=== PATIENT | male | born 1990 | race Caucasian/White ===

== ENCOUNTER 2023-12-21 01:25 | Emergency (ER) | payer SELFPAY ==
[~2023-12-21] VITALS: Ht 175.3 cm; Wt 113.4 kg
[2023-12-21] MEDS ORDERED: CIPR-262 PO (02:04)
[2023-12-21] MEDS ORDERED: CIPROFLOXACIN HCL 500 MG TABLET ONE (02:09)
[2023-12-21 02:17] VITALS: BP 141/98; TEMP 98.3; O2SAT 98
[2023-12-21] MEDS ORDERED: CIPROFLOXACIN HCL 250 MG TABLET PO ONE (02:30)
[2023-12-21 02:35] LABS: APPEARANCE,URINE CLOUDY (CLEAR); BILIRUBIN,URINE NEGATIVE (NEGATIVE); BLOOD, URINE 2+ Ery/uL (NEGATIVE); COLOR,URINE YELLOW (YELLOW); KETONES,URINE NEGATIVE (NEGATIVE); LEUKOCYTE ESTERASE ,URINE 1+ (NEGATIVE); NITRITE, URINE POSITIVE (NEGATIVE); PROTEIN,URINE 2+ mg/dl (NEGATIVE); UGLUCOSE NEGATIVE (NEGATIVE); UROBILINOGEN,URINE 0.2 EU/dL (0.2)
[2023-12-21 02:55] LABS: ADD URINE CULTURE YES; BACTERIA,URINE 1+ /HPF (None Seen); MUCUS,URINE Moderate /LPF (None Seen); RBC,URINE 51-80 /HPF (0-2); SQUAMOUS EPITHELIAL CELL,UR None Seen /HPF (None Seen)
[2023-12-23 22:06] LABS: CHLAMYDIA TRACHOMATIS NAA Negative (Negative); NEISSERIA GONORRHOEAE NAA Negative (Negative)
== END 2023-12-21 02:17 | disposition home or self-care (01) ==
LOC: ER 01:30
DX: N39.0 Urinary tract infection, site not specified (principal); Z88.0 Allergy status to penicillin
CPT/HCPCS: 81001; 87086-TC; 87491; 87591